=== PATIENT | male | born 1975 | race Caucasian/White ===

== ENCOUNTER 2017-07-22 21:16 | Inpatient (IN) ==
--- NOTE | 2017-07-22 22:16 | DR.GENAD ---
HPI - PCP Primary Care Physician: HARSHA SALINAS - Complaint/Symptoms Chief Complaint Doctors Comments: Patient admits to hurtiing in the [place] for two days, worse today. Vomited x two no diarrhea. Chief Complaint:: HURTING LOWER LEFT SIDE Self Treatment fo Chief Complaint: MOTRIN - Source History Provided: Patient - Mode of Arrival Mode of Arrival: Ambulatory - Timing Onset of Chief Complaint: 07/20/17 PMH - PMH Past Medical History: Yes Past Medical History: Hypertension, Ventricular Tachycardia Past Surgical History: No - Family History History of Family Medical Conditions: Yes Family Medical History: Diabetes Mellitus, Cancer, [place], Heart Failure, Hypertension - Social History Does patient currently use any type of tobacco product: Yes Have you used tobacco products in the last 12 months: Yes Type of Tobacco Use: Smokeless Does any household member use tobacco: Yes Alcohol Use: Occasionally Do you use any recreational Drugs:: No Lives With: Spouse Lives Where: Home - infectious screening In the last 2 months have you had wt loss of >10#?: NO Have you had fever, night sweats or hemotysis?: No Have you traveled outside the country in the last 6 months?: No Isolation: Standard ROS - Review of Systems Constitutional: Fever Eyes: No Symptoms Reported ENTM: No Symptoms Reported Respiratoy: No Symptoms Reported Cardiovascular: No Symptoms Reported Gastrointestinal/Abdominal: No Symptoms Reported Genitourinary: No Symptoms Reported Neurological: No Symptoms Reported Musculoskeletal: No Symptoms Reported Integumentary: No Symptoms Reported Hematologic/Lymphatic: No Symptoms Reported Endocrine: No Symptoms Reported Psychiatric: No Symptoms Reported All Other Systems: Reviewed and Negative PE - General General Appearance: Alert, In Distress - Head Head Exam: Normal Inspection, Atraumatic - Eyes Eye exam: Normal Appearance, PERRL, EOMI - ENT ENT Exam: Normal Exam External Ear Exam: Normal External Inspection TM/Canal Exam: Bilateral Normal Nose Exam: Normal Nose Exam Mouth Exam: Normal Inspection Throat Exam: Normal Inspection - Neck Neck Exam: Normal Inspection - Chest Chest Inspection: Normal Inspection - Respiratory Respiratory Exam: Normal Lung Sounds Bilat Respiratory Exam: Bilateral Clear to Auscultation - Cardiovascular Cardiovascular Exam: Regular Rate, Normal Rhythm - Abdominal Exam Abdominal Exam: Normal Inspection, Normal Bowel Sounds Abdominal Tenderness: LLQ - Extremities Extremities Exam: Normal Inspection, Full ROM - Back Back Exam: Normal Inspection - Neurologic Neurological Exam: Alert, Oriented X3, CN II-XII Intact - Psychiatric Psychiatric Exam: Agitated - Skin Skin Exam: Warm, Dry, Intact - Vital Signs Vitals: Temperature 101.6 F Pulse Rate 102 Respiratory Rate 20 Blood Pressure 140/90 O2 Sat by Pulse Oximetry 97 Course - Reevaluation 1st: Improved - Consultation Called: 00:15 (Dr Escobar agreed to admit for further treatment) ROR - Labs Reviewed Result Diagrams: 07/24/17 05:20 07/24/17 05:20 - XRAY XRAY Interpreted by: Radiologist (CT Abd/Pel with:The liver, gallbladder, spleen ,pancreas, adrenals and kidneys are unremarkable. There is diverticulosis of the sigmond colon, which appears markedly thickened proximally with significant pericolonic strandinng, compatible with acute diverticulitis. No abscess or perforation seen. The remainder of the GI tratc, including the appendix is normal. The IVC and abdominal aorta are normal. The collapsed urinary bladder is grossly normal. The prostate is normal in size. No free air,significant free fluid or lymphadenopathy is identified. Impression: uncomplicated acute diverticulitis of the proximal sigmoid colon) - Labs Reviewed Laboratory: WBC 12.0 X10^3/uL (3.6-10.0) H 07/22/17 22:26 RBC 4.96 X10^6/uL (4.7-6.0) 07/22/17 22:26 Hgb 14.5 g/dL (13.5-18.0) 07/22/17 22:26 Hct 41.6 % (42.0-54.0) L 07/22/17 22: MCV 83.8 fL (80.0-100.0) 07/22/17 22:26 MCH 29.2 pg (27.0-34.0) 07/22/17 22:26 MCHC 34.9 g/dL (33.0-35.0) 07/22/17 22: RDW 13.6 % (11.6-16.5) 07/22/17 22: Plt Count 237 X10^3/uL (150.0-450.0) 07/22/17 22:26 MPV 8.7 fL (7.4-11.0) 07/22/17 22:26 Neut % (Auto) 70.6 % (42.0-75.0) 07/22/17 22:26 Lymph % (Auto) 15.5 % (21.0-51.0) L 07/22/17 22: [place] % (Auto) 8.5 % (0.0-13.0) 07/22/17 22: Eos % (Auto) 4.8 % (0.9-2.9) H 07/22/17 22:26 Baso % (Auto) 0.6 % (0.2-1.0) 07/22/17 22: Neut # (Auto) 8.5 x10^3/uL (2.2-4.8) H 07/22/17 22: Lymph # (Auto) 1.9 X10^3/uL (1.3-2.9) 07/22/17: [place] # (Auto) 1.0 x10^3/uL (0.3-0.8) H 07/22/17 22: Eos # (Auto) 0.6 x10^3/uL (0.0-0.2) H 07/22/17: Baso # (Auto) 0.1 X10^3/uL (0.0-0.1) 07/22/17 22: Absolute Nucleated RBC 0.0 /100WBC 07/22/17 22: ESR 12 MM/HOUR (0-15) 07/22/17 22:26 Sodium 138 mmol/L (136-145) 07/22/17 22:26 Corrected Sodium 138 mmol/L (136-145) 07/22/17 22:26 Potassium 4.0 mmol/L (3.5-5.1) 07/22/17 22: Chloride 102 mmol/L (98-107) 07/22/17 22: Carbon Dioxide 26.3 mmol/L (21-32) 07/22/17 22:26 BUN 8 mg/dL (7-18) 07/22/17 22: Creatinine 1.26 mg/dL (0.70-1.30) 07/22/17 22:26 Est GFR (MDRD) Af Amer > 60 (>60) 07/22/17 22:26 Est GFR (MDRD) Non-Af > 60 (>60) 07/22/17 22:26 Glucose 116 mg/dL (65-99) H 07/22/17 22:26 Calcium 9.2 mg/dL (8.5-10.1) 07/22/17 22:26 Amylase 73 Units/L (25-115) 07/22/17 22:26 Lipase 133 Units/L (73-393) 07/22/17 22:26 Specimen Type Clean catch urine 07/22/17 22:43 Urine Color Yellow (YELLOW) 07/22/17 22:43 Urine Appearance Clear (CLEAR) 07/22/17 22:43 Urine pH 5.0 (5.0 - 8.0) 07/22/17 22:43 Ur Specific [place] 1.020 (1.000-1.030) 07/22/17 22:43 Urine Protein Negative (NEGATIVE) 07/22/17 22:43 Urine Glucose (UA) Negative (NEGATIVE) 07/22/17 22:43 Urine Ketones Negative (NEGATIVE) 07/22/17 22:43 Urine Occult Blood 1+ (NEGATIVE) 07/22/17 22:43 Urine Nitrite Negative (NEGATIVE) 07/22/17 22:43 Urine Bilirubin Negative (NEGATIVE) 07/22/17 22:43 Urine Urobilinogen Normal (NORMAL) 07/22/17 22:43 Ur Leukocyte Esterase Negative (NEGATIVE) 07/22/17 22:43 Urine RBC 0-2 /HPF (NONE SEEN) 07/22/17 22:43 Urine WBC 0-2 /HPF (NONE SEEN) 07/22/17 22:43 Ur Squamous Epith Cells Rare /HPF (NEGATIVE) 07/22/17 22:43 Urine Bacteria Negative /HPF (NEGATIVE) 07/22/17 22:43 Ur Culture Indicated? No/not indicated 07/22/17 22:43 - Diagnosis Discharge Problem: Diverticulitis - Discharge Plan Disposition: 09 ADMITTED INPATIENT Condition: Stable
[2017-07-22] MEDS ORDERED: TORADOL 30 MG VIAL IVP ONE (22:17)
[2017-07-22] MEDS ORDERED: TORADOL 30 MG VIAL ONE (22:22)
[2017-07-22 22:36] LABS: BASOPHILS # (AUTO) 0.1 X10^3/uL (0.0-0.1); BASOPHILS % (AUTO) 0.6 % (0.2-1.0); EOSINOPHILS # (AUTO) 0.6 x10^3/uL (0.0-0.2); EOSINOPHILS % (AUTO) 4.8 % (0.9-2.9); HEMATOCRIT 41.6 % (42.0-54.0); HEMOGLOBIN 14.5 g/dL (13.5-18.0); LYMPHOCYTES # (AUTO) 1.9 X10^3/uL (1.3-2.9); LYMPHOCYTES % (AUTO) 15.5 % (21.0-51.0); MEAN CORPUSCULAR HEMOGLOBIN 29.2 pg (27.0-34.0); MEAN CORPUSCULAR HGB CONC 34.9 g/dL (33.0-35.0); MEAN CORPUSCULAR VOLUME 83.8 fL (80.0-100.0); MEAN PLATELET VOLUME 8.7 fL (7.4-11.0); MONOCYTES % (AUTO) 8.5 % (0.0-13.0); NEUTROPHILS # (AUTO) 8.5 x10^3/uL (2.2-4.8); NEUTROPHILS % (AUTO) 70.6 % (42.0-75.0); PLATELET COUNT 237 X10^3/uL (150.0-450.0); RED BLOOD COUNT 4.96 X10^6/uL (4.7-6.0); RED CELL DISTRIBUTION WIDTH 13.6 % (11.6-16.5)
[2017-07-22 22:44] LABS: BLOOD UREA NITROGEN 8 mg/dL (7-18); CALCIUM 9.2 mg/dL (8.5-10.1); CARBON DIOXIDE 26.3 mmol/L (21-32); CHLORIDE 102 mmol/L (98-107); COR NA(FOR HYPERGLY) 138 mmol/L (136-145); CREATININE 1.26 mg/dL (0.70-1.30); SODIUM 138 mmol/L (136-145); eGFR NON BLACK RACES > 60 (>60)
[2017-07-22 22:45] LABS: AMYLASE 73 Units/L (25-115); LIPASE 133 Units/L (73-393)
[2017-07-22 22:51] LABS: BILIRUBIN,URINE NEGATIVE (NEGATIVE); BLOOD/HEMOGLOBIN,URINE 1+ (NEGATIVE); GLUCOSE, URINE NEGATIVE (NEGATIVE); KETONES,URINE NEGATIVE (NEGATIVE); LEUKOCYTE ESTERASE ,URINE NEGATIVE (NEGATIVE); NITRITES,URINE NEGATIVE (NEGATIVE); PROTEIN,URINE NEGATIVE (NEGATIVE); UROBILINOGEN,URINE NORMAL (NORMAL)
[2017-07-22] MEDS ORDERED: NS 100 ML IV 100 ML IV ONE (22:55)
[2017-07-22 22:58] LABS: APPEARANCE,URINE CLEAR (CLEAR); COLOR,URINE YELLOW (YELLOW)
[2017-07-22 22:59] LABS: BACTERIA,URINE NEGATIVE /HPF (NEGATIVE); RBC,URINE 0-2 /HPF (NONE SEEN); SQUAMOUS EPITHELIAL CELL,UR RARE /HPF (NEGATIVE)
[2017-07-23] MEDS ORDERED: NS 1000 ML 1,000 ML with POTASSIUM CHLORIDE INJ 30 MEQ VIAL 30 MEQ IV SCH ×2 (01:00)
[2017-07-23] MEDS ORDERED: PHENERGAN INJ 25 MG IV PRN (01:16)
[2017-07-23] MEDS ORDERED: NS + KCL 20 MEQ/L 1,000 ML IV ONE ×2 (02:40→13:08)
[2017-07-23] MEDS: FLAGYL IV PREMIX 500 MG BAG 500 MG/100 ML BAG IV SCH ×4 (02:53→20:47)
[2017-07-23] MEDS: NS 1000 ML 1,000 ML with POTASSIUM CHLORIDE INJ 20 MEQ VIAL 20 MEQ IV SCH ×4 (02:53→13:11)
[2017-07-23] MEDS: MORPHINE SULFATE INJ 4 MG IVP PRN ×4 (03:30→20:47)
[2017-07-23 04:43] VITALS: BMI 34.5
[2017-07-23] MEDS: CIPRO IV 400 MG PREMIX* 400 MG/200 ML IV.SOLN. IV SCH ×2 (08:33→20:47)
[2017-07-23] MEDS ORDERED: PATIENT'S HOME MEDICATION (Levocetirizine [Levocetirizine] 5 MG) PO SCH (09:30)
[2017-07-23] MEDS: TOPROL XL PO SCH (10:17)
[2017-07-23] MEDS: FLOMAX PO SCH (10:17)
[2017-07-23] MEDS: ZyrTEC TAB 10 MG PO SCH (10:18)
[2017-07-23] MEDS: NS + KCL 20 MEQ/L 1,000 ML IV SCH ×2 (13:57→21:30)
[2017-07-23] MEDS ORDERED: MIRALAX POWDER (1 DOSE 17 G) PO SCH (21:00)
[2017-07-24] MEDS: FLAGYL IV PREMIX 500 MG BAG 500 MG/100 ML BAG IV SCH ×2 (02:59→08:31)
[2017-07-24] MEDS: NS + KCL 20 MEQ/L 1,000 ML IV SCH (05:09)
[2017-07-24 06:07] LABS: ALANINE AMINOTRANSFERASE 33 Units/L (12-78); ALBUMIN 3.2 g/dL (3.4-5.0); ALKALINE PHOSPHATASE 47 Units/L (46-116); ASPARTATE AMINO TRANSFERASE 15 Units/L (15-37); BLOOD UREA NITROGEN 8 mg/dL (7-18); CALCIUM 8.8 mg/dL (8.5-10.1); CARBON DIOXIDE 28.5 mmol/L (21-32); CHLORIDE 104 mmol/L (98-107); COR CA(FOR HYPOALB) 9.4 mg/dL (8.5-10.1); COR NA(FOR HYPERGLY) 140 mmol/L (136-145); CREATININE 1.16 mg/dL (0.70-1.30); SODIUM 140 mmol/L (136-145); TOTAL PROTEIN 6.9 g/dL (6.4-8.2); eGFR NON BLACK RACES > 60 (>60)
[2017-07-24 06:08] LABS: BASOPHILS # (AUTO) 0.1 X10^3/uL (0.0-0.1); BASOPHILS % (AUTO) 0.8 % (0.2-1.0); EOSINOPHILS # (AUTO) 0.4 x10^3/uL (0.0-0.2); EOSINOPHILS % (AUTO) 4.7 % (0.9-2.9); HEMATOCRIT 38.2 % (42.0-54.0); HEMOGLOBIN 13.3 g/dL (13.5-18.0); LYMPHOCYTES # (AUTO) 1.5 X10^3/uL (1.3-2.9); LYMPHOCYTES % (AUTO) 18.2 % (21.0-51.0); MEAN CORPUSCULAR HEMOGLOBIN 29.6 pg (27.0-34.0); MEAN CORPUSCULAR HGB CONC 34.8 g/dL (33.0-35.0); MEAN PLATELET VOLUME 8.6 fL (7.4-11.0); MONOCYTES # (AUTO) 0.7 x10^3/uL (0.3-0.8); MONOCYTES % (AUTO) 8.7 % (0.0-13.0); NEUTROPHILS # (AUTO) 5.5 x10^3/uL (2.2-4.8); NEUTROPHILS % (AUTO) 67.6 % (42.0-75.0); PLATELET COUNT 230 X10^3/uL (150.0-450.0); WHITE BLOOD COUNT 8.2 X10^3/uL (3.6-10.0)
[2017-07-24] MEDS: CIPRO IV 400 MG PREMIX* 400 MG/200 ML IV.SOLN. IV SCH (08:30)
[2017-07-24] MEDS: FLOMAX PO SCH (08:31)
[2017-07-24] MEDS: TOPROL XL PO SCH (08:32)
[2017-07-24] MEDS: ZyrTEC TAB 10 MG PO SCH (08:34)
[2017-07-24 09:04] VITALS: BP 127/85
== END 2017-07-24 11:45 | disposition home or self-care (01) | DRG 392 ==
LOC: ER 21:16 → MED/SURG 07-23 01:10
PROVIDERS: ADMIT Obstetrics & Gynecology Obstetrics; ATTEND Obstetrics & Gynecology Obstetrics
DX: K57.32 Diverticulitis of large intestine without perforation or abscess without bleeding; I47.2 Ventricular tachycardia; R10.32 Left lower quadrant pain; I10 Essential (primary) hypertension
CPT/HCPCS: 36415; 74177; 80048; 80053; 81001; 82150; 82670; 83690; 84403; 85025; 85652; 94760; 96365; 96374; 99283; 99284; A4216; A4222; S0030; J0744; J1885; J2270; J2550; J3480; J7030; J7050